=== PATIENT | male | born 1970 | race Caucasian/White ===

== ENCOUNTER 2022-04-06 19:04 | Emergency (ER) | payer OTHER, SELFPAY ==
[2022-04-06 19:04] VITALS: BP 175/103; PULSE 90; RESP 16; TEMP 36.2; O2SAT 98; BMI 30.1
--- NOTE | 2022-04-06 20:29 | ED.RN ---
PT CALLED TO TAKE BACK TO ROOM, NOT FOUND IN DEPT
== END 2022-04-06 20:25 | disposition left against medical advice (07) ==
LOC: ED 20:32
DX: R05.9 Cough, unspecified (principal); Z53.21 Procedure and treatment not carried out due to patient leaving prior to being seen by health care provider

== ENCOUNTER 2022-10-28 17:51 | Emergency (ER) | payer BC, SELFPAY ==
[2022-10-28 17:52] VITALS: BP 157/103; PULSE 86; RESP 15; TEMP 36.4; O2SAT 98; BMI 32.7
--- NOTE | 2022-10-28 18:06 | EDS_ITS ---
HPI History of Present Illness Chief Complaint: Lower Extremity Injury Narrative Narrative: 52-year-old male who denies significant past medical history presents with left great toe pain that he has had for approximately 2 weeks. He states that he injured it in the middle of the night when he was walking, and headed on a table leg. He thought maybe it was just stopped, but he has noticed discoloration of his left great toe, pain that is worse with weightbearing and walking. He has been taking ibuprofen without relief. He presents because of the continued pain. He thinks its worse with elevation and icing his toe. He denies any fevers or chills. No nausea or vomiting. No other symptoms, no other injury. PFSH PFSH Home Medications hydrocodone-acetaminophen 5-325mg 5mg-325mg 1 - 2 tab PO Q4H PRN PRN Pain ##12 01/05/14 [Rx Last Taken Unknown] ondansetron 4 mg disintegrating tablet 8 mg PO Q8H PRN PRN Nausea #10 tabs 01/05/14 [Rx Last Taken Unknown] cephalexin 500 mg capsule 500 mg PO Q6 ##30 04/02/14 [Rx Last Taken Unknown] amoxicillin 875 mg-potassium clavulanate 125 mg tablet 875 mg PO Q12H ##14 08/27/14 [Rx Last Taken Unknown] methylprednisolone 4 mg tablets in a dose pack (Medrol (Simone)) 4 mg PO DAILY #21 tabs 10/28/22 [Rx Last Taken Unknown] Allergy/AdvReac Type Severity Reaction Status Date / Time No Known Allergies Allergy Verified 10/28/22 17:52 Social History Smoking Status: Never smoker ROS ROS ED ROS Narrative Constitutional: No fever, no chills. HEENT: No sore throat. No neck pain. No loss of vision. No rhinorrhea. Cardiovascular: No chest pain. No palpitations. No pedal edema. Respiratory: No cough, no shortness of breath. Abdominal: No abdominal pain. No nausea. No vomiting. Genitourinary: No dysuria. No hematuria. Musculoskeletal: No myalgias. Left great toe and foot pain worse with walking and weightbearing, sometimes worse with elevation and icing. Neurologic: No headaches. No dizziness. No lightheadedness. Skin: No rash. No change in color. Psychiatric: No depression. No anxiety. EXAM Physical Exam Narrative Exam Narrative: Afebrile. Vital signs noted. HEENT: Normocephalic. Atraumatic. PERRL, EOMI. Neck soft and supple. No point tenderness or step off. Cardiovascular: Regular rate and rhythm. No murmurs, rubs, or gallops appreciated. Respiratory: No tachypnea. Lungs clear to auscultation bilaterally. Gastrointestinal: Abdomen soft, nontender, with normoactive bowel sounds. No rebound or guarding. Neurological: Awake. Alert. Nonfocal, nonlateralizing. Skin: No rash. Normal color. No pallor. Musculoskeletal: No pedal edema. Full range of motion extremities. Inspection of the left foot reveals tenderness of the proximal phalanx of the great toe. Mild ecchymosis. Palpable dorsalis pedis pulse. No palpable Achilles tendon deficit. Uninjured at the ankle and above. Const Vital Signs: 10/28/22 17:52 Temperature 97.5 F L Temperature Source Temporal Pulse Rate 86 Respiratory Rate 15 Blood Pressure 157/103 H Blood Pressure Mean 121 Pulse Ox 98 Oxygen Delivery Method Room Air MDM MDM MDM Narrative Medical decision making narrative: Although he is 2 weeks out, and the differential diagnosis is toe or foot fracture. Gout is lower in the differential as he is not having pain in the first metatarsal joint, and he has no history of gout. No previous exacerbations. X-rays were obtained of the left foot and 3 views with attention to the first digit/great toe. X-rays of the left foot in 3 views were interpreted by myself. I see no evidence of fracture. Radiology confirms in review of the radiology report. At this point in time, I am not suspicious for cellulitis and do not feel antibiotics are indicated. Additionally, gout is lower on the differential. I do think he has more of a toe sprain versus toe contusion. His toes will be jori taped and he will be given a postop shoe to be weightbearing as tolerated. I stressed the importance of follow-up with podiatry. He was given the number to the on-call physician. He was started on a Medrol Dosepak. I do not feel that narcotic pain medication is indicated. I feel he be discharged safely home with follow-up. Return instructions to the emergency department were reviewed. Disposition is discharged home in stable condition. Radiography Diagnostic Testing: Clinical Impression(s) from Imaging Studies Foot X-Ray 10/28/22 18:14 IMPRESSION: Negative left foot x-rays. Electronically Signed: Lam Nieves MD at 18:30 EST Reading Location ID and State: [facility] / [place] Tel , Service support , Discharge Plan Triage Chief Complaint: Lower Extremity Injury ED Provider: Stef Murphy Dx/Rx/DC Orders Clinical Impression: Contusion of toe of left foot, Sprain of toe, great, left Instructions: ED Toe Sprain, ED Finger or Toe Contusion Prescriptions: New methylprednisolone [Medrol (Simone)] 4 mg tablets,dose pack 4 mg PO DAILY Qty: 21 0RF Rx Instructions: Taper as directed No Action ondansetron 4 MG tablet 8 mg PO Q8H PRN PRN (Reason: Nausea) Qty: 10 0RF hydrocodone-acetaminophen 1 TABLET tablet 1 - 2 tab PO Q4H PRN PRN (Reason: Pain) Qty: 12 0RF cephalexin 500 MG capsule 500 mg PO Q6 Qty: 30 0RF amoxicillin-pot clavulanate 875 MG tablet 875 mg PO Q12H Qty: 14 0RF Primary Care Provider: Care Physician,No Primary Referrals: Hernandez Lion DPM [Med Staff - Active Staff] - As soon as possible Care Physician,No Primary [Primary Care Provider] - Disposition Disposition: Home, Self Care
--- NOTE | 2022-10-28 18:14 | RAD_ITS ---
EXAM: XR LEFT FOOT COMPLETE, 3 OR MORE VIEWS CLINICAL INDICATION: pain -- attention 1st digit TECHNIQUE: Frontal, lateral and oblique views of the left foot. This report was created using [employer] report generation technology. COMPARISON: None. FINDINGS: BONES/JOINTS: Unremarkable. No acute fracture. No subluxation. Normal alignment. Preservation of the joint space. No sclerotic or destructive changes observed. SOFT TISSUES: Unremarkable. No soft tissue swelling or gas. No radiopaque foreign body. RAD/Foot min 3 Views IMPRESSION: Negative left foot x-rays. Electronically Signed: Lam Nieves MD at 18:30 EST ,
== END 2022-10-28 19:15 | disposition home or self-care (01) ==
PROVIDERS: Emergency Provider Emergency Medicine; Visit Provider Emergency Medicine
DX: S90.112A Contusion of left great toe without damage to nail, initial encounter (principal); X58.XXXA Exposure to other specified factors, initial encounter
CPT/HCPCS: 73630; 99283

== ENCOUNTER 2024-01-29 19:08 | Emergency (ER) | payer BC, SELFPAY ==
[2024-01-29 19:10] VITALS: BP 163/99; PULSE 93; RESP 20; TEMP 36.6; O2SAT 99; BMI 35.9
--- NOTE | 2024-01-29 19:23 | EKG12_ITS ---
Test Reason : CP Blood Pressure : / mmHG Vent. Rate : 088 BPM Atrial Rate : 088 BPM P-R Int : 152 ms QRS Dur : 076 ms QT Int : 362 ms P-R-T Axes : 061 058 061 degrees QTc Int : 438 ms Normal sinus rhythm Normal ECG Confirmed by Hernandez Chand ([id number]), editorial writer MAYURI WINTERS ([id number]) on 02/01/2024 2:21:23 PM Referred By: ILA Confirmed By:Hernandez Chand
--- NOTE | 2024-01-29 19:30 | RAD_ITS ---
STUDY: X-RAY CHEST REASON FOR EXAM: Male, 53 years old. chest pain TECHNIQUE: Single AP portable view of the chest. COMPARISON: 08/25/2014 FINDINGS: The lungs are clear and expanded. There is no demonstrated pleural abnormality. Normal size heart. Normal mediastinum and yosvany. Normal visualized pulmonary arteries. Normal visualized aortic arch and descending thoracic aorta. Normal visualized thoracic spine. Normal visualized ribs, clavicles, and shoulders. There is no demonstrated abnormality of the visualized soft tissue structures of the upper abdomen. RAD/Chest 1 View (Portable) IMPRESSION: Normal x-ray examination of the chest. Electronically Signed: Efren Blanchard MD at 20:31 EDT ,
--- NOTE | 2024-01-29 20:04 | ED.VIS.CHEST ---
HPI <PARVIZ Toney - Last Filed: 01/29/24 21:48> History of Present Illness Chief Complaint: Chest Pain Narrative Narrative: 53-year-old male with past medical history of asthma states 5 days ago he developed a productive cough with chest pressure and shortness of breath. Over the last day the shortness of breath is worsened especially with exertion. He has used his albuterol inhaler with some relief but does not like to use a lot because it causes his heart to race. He is also on Symbicort. He quit smoking 10 years ago. He denies other health problems or cardiac history. PFSH <PARVIZ Toney - Last Filed: 01/29/24 21:48> [facility] Home Medications prednisone 20 mg tablet 40 mg (2 x 20 mg) PO DAILY 4 days #8 tabs 01/29/24 [Rx Last Taken Unknown] Allergy/AdvReac Type Severity Reaction Status Date / Time No Known Allergies Allergy Verified 01/29/24 19:09 Surgical History no surgical history Social History Smoking Status: Former smoker ROS <PARVIZ Toney - Last Filed: 01/29/24 21:48> ROS ED ROS Narrative Constitutional: Negative for fever, chills. CVS: Positive for chest pain. Negative for palpitations, syncope. Respiratory: Positive for shortness of breath, cough. GI: Negative for abdominal pain, nausea, vomiting, diarrhea. EXAM <PARVIZ Toney Last Filed: 01/29/24 21:48> Physical Exam Narrative Exam Narrative: CONST: Patient sitting in no acute distress. EYES: Normal inspection. NECK: Normal inspection. RESP: No respiratory distress, clear but diminished lung sounds throughout. CVS: Regular rate and rhythm, no murmur, no gallop. SKIN: Color normal, no rash, warm, dry, intact. EXTREMITIES: Normal appearance, no pedal edema. NEURO: Alert and answering questions appropriately. PSYCH: Normal affect. Const Vital Signs: 01/29/24 19:10 01/29/24 19:10 01/29/24 19:47 Temperature 98 F 98 F Temperature Source Temporal Temporal Pulse Rate 93 93 Respiratory Rate 20 H 20 H Respiratory Effort Respiratory Depth Respiratory Pattern Blood Pressure 163/99 H 163/99 H Blood Pressure Mean 120 120 Pulse Ox 99 99 Oxygen Delivery Method Room Air Room Air Nasal Cannula 01/29/24 19:48 01/29/24 19:50 01/29/24 20:15 Temperature 97.5 F L Temperature Source Temporal Pulse Rate 93 Respiratory Rate 20 H Respiratory Effort Normal Non-Labored Respiratory Depth Shallow Respiratory Pattern Blood Pressure 137/97 H Blood Pressure Mean 110 Pulse Ox 99 Oxygen Delivery Method Room Air Room Air 01/29/24 20:15 01/29/24 21:09 01/29/24 22:56 Temperature 97.1 F L Temperature Source Pulse Rate 92 98 90 Respiratory Rate 24 H 20 H 17 Respiratory Effort Respiratory Depth Respiratory Pattern Tachypnea Blood Pressure 174/118 H 154/111 H Blood Pressure Mean 136 125 Pulse Ox 95 96 Oxygen Delivery Method Room Air <Stef Murphy MD - Last Filed: 01/29/24 23:32> Physical Exam Const Vital Signs: 01/29/24 19:10 01/29/24 19:10 01/29/24 19:47 Temperature 98 F 98 F Temperature Source Temporal Temporal Pulse Rate 93 93 Respiratory Rate 20 H 20 H Respiratory Effort Respiratory Depth Respiratory Pattern Blood Pressure 163/99 H 163/99 H Blood Pressure Mean 120 120 Pulse Ox 99 99 Oxygen Delivery Method Room Air Room Air Nasal Cannula 01/29/24 19:48 01/29/24 19:50 01/29/24 20:15 Temperature 97.5 F L Temperature Source Temporal Pulse Rate 93 Respiratory Rate 20 H Respiratory Effort Normal Non-Labored Respiratory Depth Shallow Respiratory Pattern Blood Pressure 137/97 H Blood Pressure Mean 110 Pulse Ox 99 Oxygen Delivery Method Room Air Room Air 01/29/24 20:15 01/29/24 21:09 01/29/24 22:56 Temperature 97.1 F L Temperature Source Pulse Rate 92 98 90 Respiratory Rate 24 H 20 H 17 Respiratory Effort Respiratory Depth Respiratory Pattern Tachypnea Blood Pressure 174/118 H 154/111 H Blood Pressure Mean 136 125 Pulse Ox 95 96 Oxygen Delivery Method Room Air MDM <PARVIZ Toney - Last Filed: 01/29/24 21:48> MDM MDM Narrative Medical decision making narrative: Differential: Viral URI with asthma exacerbation, pneumonia, ACS Patient has 5 days of productive cough with chest pressure and shortness of breath. He appears well and nontoxic. During my initial exam he was slightly tachypneic at 24/minute with very diminished lung sounds. The rest of his vital signs are stable. He was ordered a DuoNeb and blood work. EKG is nonischemic. CBC and BMP are normal. First troponin is 4 and delta is pending. CXR shows no acute process and viral swab is negative for RSV/COVID/flu. He was reassessed after the DuoNeb and states he feels night and day better and his lung sounds have improved. I prescribed a 5-day prednisone burst and he will continue his inhalers at home. Return precautions were discussed and he was discharged in stable condition. Lab Data Attestation: I reviewed the patient's lab results. Labs: Laboratory Results - last 24 hr 01/29/24 01/29/24 19:55 21:56 WBC 7.8 RBC 5.14 Hgb 14.6 Hct 45.5 MCV 88.5 MCH 28.4 MCHC 32.1 RDW Std Deviation 42.3 RDW Coeff of Jamey 13.0 Plt Count 287 MPV 9.4 Immature Gran % (Auto) 0.600 Neut % (Auto) 75.5 H Lymph % (Auto) 18.8 L Vernon % (Auto) 4.6 Eos % (Auto) 0.0 Baso % (Auto) 0.5 Absolute Neuts (auto) 5.9 Absolute Lymphs (auto) 1.46 Nucleated RBC % 0 Sodium 140 Potassium 3.7 Chloride 105 Carbon Dioxide 27.0 Anion Gap 8 BUN 15 Creatinine 0.85 Estim Creat Clear Calc 121.95 Est GFR (MDRD) Af Amer 121 Est GFR (MDRD) Non-Af 100 BUN/Creatinine Ratio 17.6 Glucose 94 Calcium 9.1 Troponin I High Sens 4 < 3 L Radiography Diagnostic Testing: Clinical Impression(s) from Imaging Studies Chest X-Ray 01/29/24 19:30 IMPRESSION: Normal x-ray examination of the chest. Electronically Signed: Efren Blanchard MD at 20:31 EDT , ED attending interpretation of 1-view chest x-ray shows normal heart size, no acute infiltrate. EKG Initial EKG: Attestation: I personally reviewed and interpreted this EKG as follows: Interpretation: Sinus Rhythm and No Acute Injury Pattern Comments: Normal sinus rhythm 88 bpm Normal intervals, no ischemic changes <Stef Murphy MD - Last Filed: 01/29/24 23:32> YVONNE RUSSELL Narrative Medical decision making narrative: Differential: Viral URI with asthma exacerbation, pneumonia, ACS Patient has 5 days of productive cough with chest pressure and shortness of breath. He appears well and nontoxic. During my initial exam he was slightly tachypneic at 24/minute with very diminished lung sounds. The rest of his vital signs are stable. He was ordered a DuoNeb and blood work. EKG is nonischemic. CBC and BMP are normal. First troponin is 4 and delta is pending. CXR shows no acute process and viral swab is negative for RSV/COVID/flu. He was reassessed after the DuoNeb and states he feels night and day better and his lung sounds have improved. I prescribed a 5-day prednisone burst and he will continue his inhalers at home. Return precautions were discussed and he was discharged in stable condition. Dr. Murphy: I have personally performed a face to face assessment of the patient and have reviewed the MATT Note. I performed a substantive portion of the visit including all aspects of the following. My tyson findings include: History is chest tightness and shortness of breath, cough, sick contact in family. Former smoker, quit years ago. Exam is afebrile. Vital signs noted. Regular rate and rhythm. Lungs clear to auscultation bilaterally after nebulizer treatment. Abdomen soft and nontender. Medical Decision Making: Check chest x-ray. Chest x-ray in 1 view interpreted by myself independently shows no evidence of pneumonia or pneumothorax. I reviewed the radiology report which confirms my independent interpretation. Check laboratory work. Check EKG. EKG interpreted by myself independently shows no acute ST changes. No STEMI. Discharged with prednisone burst. Other additions or changes: [None] History & Record Review Discussion w/independent historian: Patient Lab Data Labs: Laboratory Results - last 24 hr 01/29/24 01/29/24 19:55 21:56 WBC 7.8 RBC 5.14 Hgb 14.6 Hct 45.5 MCV 88.5 MCH 28.4 MCHC 32.1 RDW Std Deviation 42.3 RDW Coeff of Jamey 13.0 Plt Count 287 MPV 9.4 Immature Gran % (Auto) 0.600 Neut % (Auto) 75.5 H Lymph % (Auto) 18.8 L Vernon % (Auto) 4.6 Eos % (Auto) 0.0 Baso % (Auto) 0.5 Absolute Neuts (auto) 5.9 Absolute Lymphs (auto) 1.46 Nucleated RBC % 0 Sodium 140 Potassium 3.7 Chloride 105 Carbon Dioxide 27.0 Anion Gap 8 BUN 15 Creatinine 0.85 Estim Creat Clear Calc 121.95 Est GFR (MDRD) Af Amer 121 Est GFR (MDRD) Non-Af 100 BUN/Creatinine Ratio 17.6 Glucose 94 Calcium 9.1 Troponin I High Sens 4 < 3 L Radiography Diagnostic Testing: Clinical Impression(s) from Imaging Studies Chest X-Ray 01/29/24 19:30 IMPRESSION: Normal x-ray examination of the chest. Electronically Signed: Efren Blanchard MD at 20:31 EDT , Discharge Plan Triage Chief Complaint: Chest Pain Other Complaint: Shortness of Breath ED Midlevel Provider: Bridgette Cleveland ED Provider: Stef Murphy Dx/Rx/DC Orders Clinical Impression: Asthma exacerbation, Acute dyspnea, URI (upper respiratory infection) Instructions: ED URI, Viral W/ Wheezing (Adult) Prescriptions: New prednisone 20 mg tablet 40 mg PO DAILY 4 Days Qty: 8 0RF Primary Care Provider: Care Physician,No Primary Referrals: Care Physician,No Primary [Primary Care Provider] - Activity Restrictions/Additional Instructions: Continue your inhalers and I prescribed prednisone. I suspect you have a viral upper respiratory infection that caused an asthma flare and the symptoms you are experiencing. Return to ER if your breathing worsens. Disposition Disposition: Home, Self Care Discharge Date/Time: 01/29/24 22:57
[2024-01-29 20:09] LABS: Absolute Lymphocyte Count 1.46 X10^3/uL (0.83-4.51); Absolute Neutrophil Count 5.9 X10^3/uL (2.0-7.7); Basophil# 0.04 X10^3/uL; Basophil% 0.5 % (0-1); Hematocrit 45.5 % (40-54); Hemoglobin 14.6 g/dL (13.0-16.5); Lymphocyte # 1.46 X10^3/ul (0.83-4.51); Lymphocyte % 18.8 % (19-41); Mean Corp Hgb Conc 32.1 g/dL (32-36); Mean Corpuscular Hgb 28.4 pg (27.0-32.0); Mean Corpuscular Volume 88.5 fL (80-94); Mean Platelet Vol. 9.4 fl (6.2-12.0); Monocyte# 0.36 X10^3/uL; Monocyte% 4.6 % (0-10); NRBC Flagged by Analyzer 0 % (0-5); Neutrophil # 5.86 X10^3/uL (2.7-7.7); Neutrophil % 75.5 % (47-70); Platelet Count 287 K/mm3 (150-450); RBC Distribution Width SD 42.3 fl (35.1-43.9); Red Blood Count 5.14 M/mm3 (4.6-6.2); White Blood Count 7.8 K/mm3 (4.4-11.0)
[2024-01-29 20:15] VITALS: BP 137/97; PULSE 92; PULSE 93; RESP 20; RESP 24; TEMP 36.4; O2SAT 99
[2024-01-29] MEDS: Ipratropium/Albuterol Sulfate 3 ML AMPUL.NEB INHALATION (20:15)
[2024-01-29 20:30] LABS: Anion Gap 8 (5-15); BUN 15 mg/dL (7-18); BUN/Creat Ratio 17.6 RATIO (10-20); Calcium,Total 9.1 mg/dL (8.5-10.1); Chloride 105 mmol/L (98-107); Creatinine, Serum 0.85 mg/dL (0.70-1.30); EST Glomerular Filtration Rate 100 mL/min (>60); Est Glom Filt Rate - Afr Amer 121 mL/min (>60); Estimated Creatinine Clearance 121.95 ml/min; Glucose 94 mg/dL (74-106); Potassium 3.7 mmol/L (3.5-5.1); Sodium Level 140 mmol/L (136-145); Troponin-I HS (w/2H Reflex) 4 pg/mL (3.0-78.0)
[2024-01-29 21:09] VITALS: BP 174/118; PULSE 98; RESP 20; O2SAT 95
[2024-01-29] MEDS: predniSONE 20 MG Tablet 40 MG PO (21:29)
[2024-01-29 22:01] LABS: Reflex Troponin-HS? (from REC) Y
[2024-01-29 22:22] LABS: Troponin-I HS < 3 pg/mL (3.0-78.0)
[2024-01-29 22:56] VITALS: BP 154/111; PULSE 90; RESP 17; TEMP 36.2; O2SAT 96
== END 2024-01-29 22:57 | disposition home or self-care (01) ==
PROVIDERS: Emergency Provider Emergency Medicine; Visit Provider Emergency Medicine
DX: J45.901 Unspecified asthma with (acute) exacerbation (principal); J06.9 Acute upper respiratory infection, unspecified; Z11.52 Encounter for screening for COVID-19; Z79.51 Long term (current) use of inhaled steroids; Z79.899 Other long term (current) drug therapy; Z87.891 Personal history of nicotine dependence
CPT/HCPCS: 71045; 80048; 84484; 85025; 87631; 93005; 94640; 99284; A4216